=== PATIENT | female | born 1960 | race Caucasian/White ===

== ENCOUNTER → 2017-01-15 | Outpatient (CLI) | payer BC ==
--- NOTE | 2017-01-15 17:30 | PCVCIMAG ---
APPROVED REPORT Exam: Stress Echocardiogram Indication: chest pressure,htn,hcl,palpitations Patient Location: Echo lab Stress Nurse: Amirah Pantoja RN Status: routine Ht: 5 ft 4 in HR: 71 bpm BP: 136/92 mmHg Rhythm: NSR with PVCs Medical History Medical History: Hyperlipidemia, HTN Cardiac Risk Factors: HTN, Hyperlipidemia Exercise History: Indeterminate Procedure The patient underwent an Exercise Stress Test using the Matthew Protocol. Blood pressure, heart rate, and EKG were monitored. An Echocardiogram was performed by manufacturing production technician in four stages in quad fashion. At peak stress, four selected images were obtained and placed side by side with resting images for comparison. Stress Test Details Stress Test: Exercise stress testing was performed using a Matthew protocol. HR Resting HR: 74 bpmMax Heart Rate (APMHR): 163 bpm Max HR Achieved: 148 bpmTarget HR (85% APMHR): 138 bpm % of APMHR: 90 Recovery HR: 88 bpm HR response to stress: Normal HR response to stress BP Resting BP: 136/92 mmHg Max BP: 182/88 mmHg Recovery BP: 148/88 mmHg ECG Resting ECG: Sinus Rhythm with PVCs Stress ECG: Sinus Rhythm with PVCS ST Change: Nondiagnostic Arrhythmia: Frequent PVCs occasional couplets; PACs Recovery ECG: Sinus Rhythm Recovery ST Change: Non-ischemic Recovery Arrhythmia: Occasional PVCs Clinical Reason for Termination: Maximal effort Stress Symptoms: chest tightness unchanged with exercise- mild Exercise duration: 8 min 26 sec Highest Stage Achieved: Stage 3: 3.4 mph at 14% grade. Exercise capacity: 10.4 METs Overall Exercise Capacity for Age: Average Angina Score: Non-Limiting Stress ECG Conclusion The patient exercised according to the Matthew Protocol for 8:26 minutes, achieving a maximum work level of 10.4 METS. The resting heart rate of 71 bpm, aquiles to a maximal level of 148 bpm. This value represents 90 % of the maximal, age-predicted heart rate. The resting blood pressure of 136/92 mmHg, aquiles to a maximum blood pressure of 182/88 mmHg. The exercise was stopped due to fatigue. Pre-Stress Echo The resting Echocardiogram showed normal left ventricular contractility with an estimated Ejection Fraction of about 55-60%. Normal wall motion in all segments on baseline images. Post-Stress Echo The stress Echocardiogram showed normal left ventricular contractility with an estimated Ejection Fraction of about 65-70%. Normal augmentation of wall motion in all segments on post stress images. Clinical No clinical or ECG evidence for ischemia. Conclusion Clinical Response: Non-ischemic Exercise Capacity: Average Stress ECG Response: Non-ischemic Stress Echo Images: Non-ischemic No clinical, EKG or echocardiographic evidence for ischemia. No echocardiographic evidence for exercise induced ischemia. Normal stress echocardiogram with maximal exercise stress. <Conclusion> No clinical, EKG or echocardiographic evidence for ischemia. No echocardiographic evidence for exercise induced ischemia. Normal stress echocardiogram with maximal exercise stress.
== END | disposition home or self-care (01) ==
LOC: PCVCIMAG 15:41
PROVIDERS: ATTEND Internal Medicine Cardiovascular Disease
DX: I10 Essential (primary) hypertension (principal); E78.5 Hyperlipidemia, unspecified; R00.2 Palpitations; R07.89 Other chest pain
CPT/HCPCS: 93325; 93351

== ENCOUNTER → 2018-03-11 | Outpatient (CLI) | payer BC, OTHER ==
--- NOTE | 2018-03-11 14:42 | PCVCIMAG ---
EXAM: BILATERAL CAROTID DUPLEX INDICATION: Transient cerebral ischemia. Visual disturbance. FINDINGS: Doppler Measurements (centimeters per second): RIGHT: Peak CCA-87, Peak ECA-89, Diastolic ICA-27, Peak ICA-72, ICA/CCA Ratio-0.8. LEFT: Peak CCA-109, Peak ECA-90, Diastolic ICA-23, Peak ICA-82, ICA/CCA Ratio-0.7. RIGHT CAROTID: The carotid bulb has no significant plaque. The proximal internal carotid artery shows no significant stenosis. The common carotid artery shows no significant stenosis. The external carotid artery shows no significant stenosis. LEFT CAROTID: The carotid bulb has no significant plaque. The proximal internal carotid artery shows no significant stenosis. The common carotid artery shows no significant stenosis. The external carotid artery shows no significant stenosis. Antegrade flow in both vertebral arteries. IMPRESSION: No significant stenosis of the right internal carotid artery with no significant plaque. No significant stenosis of the left internal carotid artery with no significant plaque. LOC:[place] [id number]
== END | disposition home or self-care (01) ==
LOC: PCVCIMAG 13:52
PROVIDERS: ATTEND Internal Medicine Cardiovascular Disease
DX: I61.0 Nontraumatic intracerebral hemorrhage in hemisphere, subcortical (principal); G45.9 Transient cerebral ischemic attack, unspecified; H53.9 Unspecified visual disturbance
CPT/HCPCS: 93880